=== PATIENT | female | born 1965 | race Caucasian/White ===

== ENCOUNTER 2021-06-30 15:05 | Inpatient (IN) | payer OTHER ==
[2021-06-30 15:25] VITALS: BP 147/90
[2021-06-30 16:04] LABS: BASO # 0.1 10*3/uL (0.0-0.1); BASO % 0.6 % (0.0-1.0); EOS # 0.2 10*3/uL (0.0-0.4); EOS % 1.8 % (1.0-4.0); LYMPH # 2.1 10*3/uL (1.3-4.4); LYMPH % 17.4 % (27.0-41.0); MEAN CELL VOLUME 95.8 fl (81.0-99.0); MEAN CORPUSCULAR HGB 29.9 pg (27.0-31.0); MEAN CORPUSCULAR HGB CONC 31.2 g/dl (33.0-37.0); MEAN PLATELET VOLUME 10.5 fl (9.6-12.3); MONO % 8.1 % (3.0-9.0); NEUT # 8.5 10*3/uL (2.3-7.9); NEUT % 71.5 % (47.0-73.0); PLATELET COUNT AUTOMATED 389 10*3/uL (130-400); RED BLOOD COUNT 4.28 10*6/uL (4.10-5.10); RED CELL DISTRI WIDTH 14.7 % (0-14.5); WHITE BLOOD COUNT 11.9 10*3/uL (4.8-10.8)
[2021-06-30 16:19] LABS: BILIRUBIN Negative (Negative); BLOOD Negative (Negative); CLARITY Clear (Clear); COLOR Yellow (Yellow); GLUCOSE Negative (Negative); KETONE Negative (Negative); LEUKO ESTERASE Negative (Negative); NITRITE Negative (Negative); PH 7.5 (4.5-8.0); SPECIFIC GRAVITY <= 1.005 (1.001-1.030); UROBILINOGEN 0.2 E.U./dl (0.0-1.0)
[2021-06-30 16:19] LABS: ALBUMIN 3.3 gm/dl (3.1-4.5); ALKALINE PHOSPHATASE 146 U/L (45-117); BUN 12 mg/dl (7-24); CHLORIDE 109 mmol/L (98-107); CREATININE 0.79 mg/dL (0.55-1.02); POTASSIUM 3.7 mmol/L (3.5-5.1); SGOT/AST 17 IU/L (3-35); SGPT/ALT 18 U/L (12-78); SODIUM 140 mmol/L (136-145); TOTAL PROTEIN 7.2 gm/dL (6.4-8.2)
[2021-06-30 16:25] LABS: URINE AMPHETAMINES < 1000 (1000ng/ml); URINE BARBITURATES < 200 (200ng/ml); URINE BENZODIAZEPINES < 200 (200ng/ml); URINE CANNABINOIDS (THC) < 50 (50ng/ml); URINE COCAINE < 300 (300ng/ml); URINE METHADONE < 300 (300ng/ml); URINE OPIATES < 300 (300ng/ml)
[2021-06-30 16:26] LABS: URINE PHENCYCLIDINE < 25 (25ng/ml)
[2021-06-30 16:35] LABS: BACTERIA 2+; RBC 0-2 rbc/hpf (0-2); WBC 0-2 wbc/hpf (0-5)
[2021-06-30 19:00] VITALS: BP 126/76
[2021-06-30 21:09] VITALS: BP 133/80
[2021-06-30 23:02] VITALS: BP 107/73
[2021-07-01 00:33] VITALS: BP 115/83
[2021-07-01 02:33] VITALS: BP 112/63
[2021-07-01 04:44] VITALS: BP 140/80
[2021-07-01 06:13] LABS: BASO # 0.1 10*3/uL (0.0-0.1); BASO % 0.6 % (0.0-1.0); EOS # 0.3 10*3/uL (0.0-0.4); EOS % 2.3 % (1.0-4.0); HEMATOCRIT 39.5 % (37.0-47.0); LYMPH # 1.4 10*3/uL (1.3-4.4); LYMPH % 12.4 % (27.0-41.0); MEAN CELL VOLUME 97.1 fl (81.0-99.0); MEAN CORPUSCULAR HGB 29.7 pg (27.0-31.0); MEAN CORPUSCULAR HGB CONC 30.6 g/dl (33.0-37.0); MEAN PLATELET VOLUME 10.8 fl (9.6-12.3); MONO # 0.9 10*3/uL (0.1-1.0); MONO % 7.7 % (3.0-9.0); NEUT # 8.5 10*3/uL (2.3-7.9); NEUT % 76.6 % (47.0-73.0); PLATELET COUNT AUTOMATED 345 10*3/uL (130-400); RED BLOOD COUNT 4.07 10*6/uL (4.10-5.10); RED CELL DISTRI WIDTH 14.8 % (0-14.5); WHITE BLOOD COUNT 11.1 10*3/uL (4.8-10.8)
[2021-07-01 06:25] LABS: BUN 17 mg/dl (7-24); CHLORIDE 111 mmol/L (98-107); CREATININE 0.81 mg/dL (0.55-1.02); POTASSIUM 4.2 mmol/L (3.5-5.1); SODIUM 140 mmol/L (136-145)
[2021-07-01] MEDS ORDERED: SYNTHROID,LEVO88 MCG PO (14:01)
[2021-07-01] MEDS ORDERED: TOPAMAX50 MG PO (14:01)
== END 2021-07-01 14:17 | disposition left against medical advice (07) | DRG 770 ==
LOC: ED 15:05 → EDHOLD 18:50
PROVIDERS: Emergency Medicine; Internal Medicine; ADMIT Family Medicine; ATTEND Family Medicine
DX: F10.230 Alcohol dependence with withdrawal, uncomplicated (principal); F43.21 Adjustment disorder with depressed mood; F15.10 Other stimulant abuse, uncomplicated; F17.210 Nicotine dependence, cigarettes, uncomplicated; Z20.822 Contact with and (suspected) exposure to COVID-19; E03.9 Hypothyroidism, unspecified; F41.1 Generalized anxiety disorder; Z90.49 Acquired absence of other specified parts of digestive tract; Z82.49 Family history of ischemic heart disease and other diseases of the circulatory system; Z53.29 Procedure and treatment not carried out because of patient's decision for other reasons; R45.851 Suicidal ideations

== ENCOUNTER 2023-07-04 06:51 | Emergency (ER) | payer OTHER ==
[~2023-07-04] VITALS: Ht 162.5 cm; Wt 85.7 kg
[~2023-07-04 06:51] MED LIST: SYNTHROID,LEVO88 MCG PO; TOPAMAX50 MG PO
[2023-07-04] MEDS ORDERED: PREDNISONE20 M1 PO (10:52)
[2023-07-04] MEDS ORDERED: TIZANIDINE HCL4 MG PO (10:52)
== END 2023-07-04 11:05 | disposition home or self-care (01) ==
LOC: ED 06:51
DX: M54.50 Low back pain, unspecified (principal); M79.602 Pain in left arm; F17.210 Nicotine dependence, cigarettes, uncomplicated; Z98.51 Tubal ligation status; Z90.49 Acquired absence of other specified parts of digestive tract; Z98.890 Other specified postprocedural states; W10.8XXA Fall (on) (from) other stairs and steps, initial encounter; Y93.02 Activity, running; Y92.89 Other specified places as the place of occurrence of the external cause; Y99.8 Other external cause status

== ENCOUNTER 2023-07-06 10:47 | Emergency (ER) | payer OTHER ==
[~2023-07-06] VITALS: Ht 162.5 cm; Wt 81.6 kg
[~2023-07-06 10:47] MED LIST changes: +PREDNISONE20 M1 PO; +TIZANIDINE HCL4 MG PO
[2023-07-06] MEDS ORDERED: TIZANIDINE HCL4 MG PO ×2 (11:12)
[2023-07-06] MEDS ORDERED: PREDNISONE20 M1 PO ×2 (11:12)
== END 2023-07-06 11:20 | disposition home or self-care (01) ==
LOC: ED 10:47
DX: M54.50 Low back pain, unspecified (principal); E03.9 Hypothyroidism, unspecified; F41.9 Anxiety disorder, unspecified; F32.A Depression, unspecified; Z98.51 Tubal ligation status; Z90.49 Acquired absence of other specified parts of digestive tract; Z98.890 Other specified postprocedural states; F10.10 Alcohol abuse, uncomplicated; F17.210 Nicotine dependence, cigarettes, uncomplicated

== ENCOUNTER 2023-07-19 10:20 | Emergency (ER) | payer OTHER ==
[~2023-07-19] VITALS: Wt 88.5 kg
[2023-07-19] MEDS ORDERED: NAPROXEN500 MG PO (14:08)
== END 2023-07-19 14:48 | disposition home or self-care (01) ==
LOC: ED 10:20
DX: M54.41 Lumbago with sciatica, right side (principal); M25.551 Pain in right hip; E03.9 Hypothyroidism, unspecified; F41.9 Anxiety disorder, unspecified; F32.A Depression, unspecified; Z98.51 Tubal ligation status; Z90.49 Acquired absence of other specified parts of digestive tract; Z98.890 Other specified postprocedural states; F17.210 Nicotine dependence, cigarettes, uncomplicated; F10.10 Alcohol abuse, uncomplicated

== ENCOUNTER 2024-04-28 08:47 | Emergency (ER) | payer OTHER ==
[~2024-04-28] VITALS: Ht 160 cm; Wt 86.2 kg
[~2024-04-28 08:47] MED LIST changes: +NAPROXEN500 MG PO
[2024-04-28] MEDS ORDERED: VOLTAREN ARTHRI20 GM TD (12:04)
== END 2024-04-28 12:13 | disposition home or self-care (01) ==
LOC: ED 08:47
DX: B34.9 Viral infection, unspecified (principal); Z20.822 Contact with and (suspected) exposure to COVID-19; F41.9 Anxiety disorder, unspecified; F32.A Depression, unspecified; E03.9 Hypothyroidism, unspecified; F10.10 Alcohol abuse, uncomplicated; F17.210 Nicotine dependence, cigarettes, uncomplicated; Z98.51 Tubal ligation status; Z90.49 Acquired absence of other specified parts of digestive tract; Z98.890 Other specified postprocedural states